=== PATIENT | female | born 1950 | race Caucasian/White ===

== ENCOUNTER 2017-07-21 11:13 | Outpatient (CLI) | payer BC, MEDICARE ==
--- NOTE | 2017-07-27 14:32 | Mammography Report ---
Procedure Date: 07/21/2017 Accession Number: [id number] / [id number] Procedure: SONIA - Screening Mammo Dig Bilat CPT Code: FULL RESULT: EXAM: Screening Mammo Dig Bilat DATE: 07/21/2017 11:30 AM CLINICAL HISTORY: 67-year-old for screening TECHNIQUE: Bilateral CC and MLO views were obtained. COMPARISON: 04/25/2007, 04/19/2006 FINDINGS: The breasts demonstrate scattered fibroglandular densities bilaterally. Punctate, typically benign calcifications are present. No suspicious masses, clustered microcalcifications, or regions of architectural distortion are identified. IMPRESSION: Benign findings RECOMMENDATION: Routine annual screening unless otherwise clinically indicated. BIRADS CATEGORY 2: Benign findings STANDARD QUALIFYING STATEMENTS: 1. This examination was reviewed with the aid of Computer-Aided Detection (CAD). 2. A negative or benign imaging report should not delay biopsy if clinically suspicious findings are present. Consider surgical consultation if warrented. More than 5% of cancers are not identified by imaging. 3. Dense breasts may obscure an underlying neoplasm.
== END 2017-07-21 11:14 | disposition home or self-care (01) ==
LOC: DI 11:13
PROVIDERS: ATTEND Physician Assistant
DX: Z12.31 Encounter for screening mammogram for malignant neoplasm of breast (principal)
CPT/HCPCS: 77067

== ENCOUNTER 2017-08-10 09:28 | Day surgery (SDC) | payer BC, MEDICARE ==
[2017-08-10] MEDS ORDERED: LACTATED RINGERS 1,000 ML IV ONE ×2 (09:41→12:15)
[2017-08-10] MEDS ORDERED: PROPOFOL 200 MG/20 ML VIAL IVP ONE (12:06)
[2017-08-10] MEDS ORDERED: fentaNYL 100 MCG/2 ML VIAL IVP ONE (12:06)
[2017-08-10] MEDS ORDERED: MIDAZOLAM 2 MG/2 ML VIAL IVP ONE (12:06)
[2017-08-10 13:04] VITALS: BP 150/61
== END 2017-08-10 09:29 | disposition home or self-care (01) ==
LOC: SDS 09:28
PROVIDERS: ATTEND Internal Medicine Gastroenterology
PROC: 0DBN8ZX Excision of Sigmoid Colon, Via Natural or Artificial Opening Endoscopic, Diagnostic (ICD-10-PCS; principal; 2017-08-10 10:45)
DX: Z12.11 Encounter for screening for malignant neoplasm of colon (principal); K62.1 Rectal polyp; K63.5 Polyp of colon; K57.30 Diverticulosis of large intestine without perforation or abscess without bleeding; Z80.0 Family history of malignant neoplasm of digestive organs; Z79.82 Long term (current) use of aspirin
CPT/HCPCS: 45380; J7120; 88305

== ENCOUNTER 2021-01-11 13:41 | Outpatient (CLI) | payer BC, MEDICARE | END 2021-01-11 13:42 | disposition critical access hospital (66) | LOC: EMS 13:41 | DX: R07.9 Chest pain, unspecified (principal); R06.02 Shortness of breath; R61 Generalized hyperhidrosis | CPT/HCPCS: A0425; A0427 ==

== ENCOUNTER 2021-01-11 14:11 | Emergency (ER) | payer BC, MEDICARE ==
[2021-01-11] MEDS ORDERED: MORPHINE 2 MG/ML CARPUJECT IVP STA ×2 (14:22→15:15)
--- NOTE | 2021-01-11 14:22 | ED Physician Documentation ---
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 It is at times severe. She maybe had some mild relief with aspirin and nitroglycerin administer prior to arrival by EMS but is still in significant pain. Review of Systems Ten Systems: 10 systems reviewed and negative Constitutional: denies: Fever, Chills Cardiac: denies: Palpitations Respiratory: reports: Dyspnea. 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 - Present Medications Home Medications: Ambulatory Orders Medication Instructions Recorded Confirmed Albuterol Sulfate 1.25 mg IH 04/16/19 lisinopriL [Lisinopril] 10 mg PO DAILY #20 tablet 04/16/19 predniSONE [Deltasone] 15 mg PO 0800 04/16/19 04/16/19 - Allergies Allergies/Adverse Reactions: Allergies Allergy/AdvReac Type Severity Reaction Status Date / Time adhesive Allergy Severe Rash Verified 01/11/21 15:30 latex Allergy Rash Verified 01/11/21 15:30 oxycodone [From Percocet] Allergy Itching Verified 01/11/21 15:30 Sulfa (Sulfonamide Allergy Anaphylaxis Verified 01/11/21 15:30 Antibiotics) PD ED PE NORMAL - Vitals Vital signs reviewed: Yes - General General: Alert and oriented X 3 (She appears uncomfortable. She has hypertensive.) - HEENT HEENT: PERRL, EOMI - Neck Neck: Supple, no meningeal sign, No bony TTP - Cardiac Cardiac: RRR, No murmur, Other (Her chest pain is reproducible with palpation of the upper left breast, and movement of the left arm.) - Respiratory Respiratory: No respiratory distress, Clear bilaterally - Abdomen Abdomen: Soft, Non tender - Derm Derm: Normal color, Warm and dry - Extremities Extremities: No edema, No calf tenderness / cord - Neuro Neuro: Alert and oriented X 3, Normal speech - Psych Psych: Normal mood, Normal affect Results - Vitals Vitals: Vital Signs - 24 hr 01/11/21 01/11/21 01/11/21 14:10 15:00 16:06 Temperature 36.9 C Heart Rate 46 L 44 L 46 L Respiratory 16 15 14 Rate Blood Pressure 137/68 H 148/63 H 159/63 H O2 Saturation 96 97 94 01/11/21 01/11/21 16:30 17:00 Temperature Heart Rate 46 L 42 L Respiratory 11 L 17 Rate Blood Pressure 166/68 H 199/64 H O2 Saturation 96 95 Oxygen O2 Source Room air - EKG (time done) 1414 Rate: Rate (enter#) (47) Rhythm: Sinus bradycardia Intervals: RBBB (known and preexisitng per pt) QRS: Normal Ischemia: No: ST elevation c/w ischemia, ST depression, Non specific changes - Labs Labs: Laboratory Tests 01/11/21 01/11/21 01/11/21 14:26 14:26 14:26 WBC 6.3 RBC 4.32 Hgb 13.5 Hct 41.6 MCV 96.3 MCH 31.3 H MCHC 32.5 RDW 14.2 Plt Count Neut # (Auto) 4.4 Lymph # (Auto) 1.3 L [place] # (Auto) 0.4 Eos # (Auto) 0.1 Baso # (Auto) 0.1 Absolute Nucleated RBC 0.00 Nucleated RBC % 0.0 Manual Slide Review Indicated Platelet Estimate NORMAL (130-450,000) Platelet Morphology PLATELET CLUMPING Sodium 139 Potassium 4.4 Chloride 104 Carbon Dioxide 25 Anion Gap 10.0 BUN 20 Creatinine 0.7 Estimated GFR (MDRD) 82 L Glucose 114 H Calcium 9.3 Total Bilirubin 0.9 AST 21 ALT 26 Alkaline Phosphatase 51 Troponin I High Sens 5.3 Total Protein 6.2 L Albumin 4.0 Globulin 2.2 Albumin/Globulin Ratio 1.8 01/11/21 16:53 WBC RBC Hgb Hct MCV MCH MCHC RDW Plt Count Neut # (Auto) Lymph # (Auto) [place] # (Auto) Eos # (Auto) Baso # (Auto) Absolute Nucleated RBC Nucleated RBC % Manual Slide Review Platelet Estimate Platelet Morphology Sodium Potassium Chloride Carbon Dioxide Anion Gap BUN Creatinine Estimated GFR (MDRD) Glucose Calcium Total Bilirubin AST ALT Alkaline Phosphatase Troponin I High Sens 5.4 Total Protein Albumin Globulin Albumin/Globulin Ratio PD MEDICAL DECISION MAKING - ED course ED course: 70-year-old woman presents with pain of the left upper breast, chest, neck and back. EKG is unremarkable. Serial troponins in the emergency department were negative. CT angiography of the chest mainly what to look at her aorta given the radiation to the back and association with hypertension is negative for aortic pathology. Morphine was minimally helpful for pain but she actually did get decent relief with Toradol. The reproducibility of her pain suggests a musculoskeletal etiology. Departure - Departure Disposition: 01 Home, Self Care Clinical Impression: Chest wall pain Condition: Good Record reviewed to determine appropriate education?: Yes Instructions: ED Strain Chest Wall Comments: As discussed, this seems musculoskeletal. Return if it worsens or changes or if not other new worrisome symptoms develop. Follow-up with your primary care physician regardless.
[2021-01-11] MEDS ORDERED: IOVERSOL 320 100 ML VIAL IVP ONE ×2 (14:34→18:37)
[2021-01-11 14:37] LABS: BASOPHILS # (AUTO) 0.1 10^3/uL (0.0-0.1); BASOPHILS % (AUTO) 1.1 %; EOSINOPHILS # (AUTO) 0.1 10^3/uL (0.0-0.7); EOSINOPHILS % (AUTO) 1.6 %; HCT - HEMATOCRIT 41.6 % (37.0-47.0); HGB - HEMOGLOBIN 13.5 g/dL (12.0-16.0); LYMPHOCYTES # (AUTO) 1.3 10^3/uL (1.5-3.5); LYMPHOCYTES % (AUTO) 21.2 %; MEAN CORPUSCULAR HEMOGLOBIN 31.3 pg (27.0-31.0); MEAN CORPUSCULAR HGB CONC 32.5 g/dL (32.0-36.0); MEAN CORPUSCULAR VOLUME 96.3 fL (81.0-99.0); MONOCYTES # (AUTO) 0.4 10^3/uL (0.0-1.0); MONOCYTES % (AUTO) 5.7 %; NEUTROPHILS # (AUTO) 4.4 10^3/uL (1.5-6.6); NEUTROPHILS % (AUTO) 69.9 %; RED BLOOD COUNT 4.32 10^6/uL (4.20-5.40); RED CELL DISTRIBUTION WIDTH 14.2 % (12.0-15.0); WHITE BLOOD COUNT 6.3 x10^3/uL (4.8-10.8)
[2021-01-11 14:51] LABS: ALBUMIN/GLOBULIN RATIO 1.8 (1.0-2.2); BILIRUBIN,TOTAL 0.9 mg/dL (0.2-1.0); CALCIUM 9.3 mg/dL (8.5-10.3); CREATININE 0.7 mg/dL (0.4-1.0); POTASSIUM 4.4 mmol/L (3.5-5.0); TOTAL PROTEIN 6.2 g/dL (6.7-8.2)
[2021-01-11 14:53] LABS: PLATELET ESTIMATE, MANUAL NORMAL (130-450,000) (NORMAL); PLATELET MORPHOLOGY PLATELET CLUMPING (NORMAL); SLIDE REVIEW? Indicated
--- NOTE | 2021-01-11 16:07 | CT Report ---
PROCEDURE: ANGIO CHEST W/WO INDICATIONS: chest pain, aorta protocol CONTRAST: IV CONTRAST: Optiray 320 ml: 80 PO CONTRAST: *NO PO CONTRAST TECHNIQUE: After the administration of intravenous contrast, 2 mm axial images were acquired from the pulmonary apices to the posterior costophrenic angles during the arterial phase. In addition, 1 mm lung kernel and 5 mm soft tissue kernel reconstructions were performed. 3-dimensional coronal oblique maximum int ensity projection (MIP) reformats, 8 mm axial MIP, and 5 mm coronal and sagittal MPR reformats were t hen performed through the thorax. For radiation dose reduction, the following was used: automated exp osure control, adjustment of mA and/or kV according to patient size. COMPARISON: Chest x-ray 04/16/2019 FINDINGS: Image quality: Excellent. Pulmonary arteries: Pulmonary arteries are normal in size, and demonstrate no intraluminal filling d efects to suggest central pulmonary embolism. Lungs and pleura: Lungs are clear. No pleural effusions or pneumothorax. Central and peripheral ai rways are patent. Mediastinum: Heart size is enlarged, without pericardial effusion. No mediastinal or hilar adenopat hy. Thoracic aorta is normal in caliber and enhancement. Esophagus is normal in caliber, without hi atal hernia. Bones and chest wall: No suspicious bony lesions. Ribs and thoracic spine appear intact throughout. No axillary or supraclavicular adenopathy. The thyroid is normal in size and there are no incident al findings. Abdomen: Visualized upper abdominal solid organs appear normal in the early arterial phase of enhanc ement. IMPRESSION: 1. Lungs are clear. No pulmonary embolus. CLINICAL RECOMMENDATION STATEMENTS: In patients <35 years with an ITN detected on CT, MRI, or extrathyroidal ultrasound, the Committee re commends further evaluation with dedicated thyroid ultrasound if the nodule is "e1 cm and has no susp icious imaging features, and if the patient has normal life expectancy. In patients "e35 years with an ITN detected on CT, MRI, or extrathyroidal ultrasound, the Committee r ecommends further evaluation with dedicated thyroid ultrasound if the nodule is "e1.5 cm and has no s uspicious imaging features, and if the patient has normal life expectancy. (ACR, 2014) Reviewed by: Xiomara Franco MD on 01/11/2021 4:06 PM PST Approved by: Xiomara Franco MD on 01/11/2021 4:06 PM [facility] Station ID: [id number]
[2021-01-11] MEDS ORDERED: KETOROLAC 30 MG/ML VIAL IVP STA (16:15)
[2021-01-11 17:05] VITALS: BP 199/64
[2021-01-11] MEDS ORDERED: lisinopriL 5 MG TABLET PO STA (17:10)
== END 2021-01-11 18:06 | disposition home or self-care (01) ==
LOC: ED 14:11
DX: R07.89 Other chest pain (principal); M54.2 Cervicalgia; I10 Essential (primary) hypertension; R00.1 Bradycardia, unspecified; I45.10 Unspecified right bundle-branch block; Z82.49 Family history of ischemic heart disease and other diseases of the circulatory system
CPT/HCPCS: 36415; 71275; 80053; 84484; 85025; 93005; 96374; 96375; 96376; 99283; 99284; A9270; Q9967

== ENCOUNTER 2021-06-23 16:43 | Outpatient (CLI) | payer BC, MEDICARE | END 2021-06-23 16:44 | disposition home or self-care (01) | LOC: LAB.S 16:43 | PROVIDERS: ATTEND Internal Medicine Rheumatology | DX: M35.3 Polymyalgia rheumatica (principal); M81.0 Age-related osteoporosis without current pathological fracture | CPT/HCPCS: 36415; 82306; 85651; 86140 ==

== ENCOUNTER 2022-03-23 12:28 | Outpatient (CLI) | payer BC, MEDICARE ==
[2022-03-23 14:15] LABS: BASOPHILS # (AUTO) 0.1 10^3/uL (0.0-0.1); BASOPHILS % (AUTO) 1.5 %; EOSINOPHILS # (AUTO) 0.1 10^3/uL (0.0-0.7); EOSINOPHILS % (AUTO) 2.4 %; HGB - HEMOGLOBIN 13.9 g/dL (12.0-16.0); LYMPHOCYTES # (AUTO) 1.5 10^3/uL (1.5-3.5); LYMPHOCYTES % (AUTO) 25.1 %; MEAN CORPUSCULAR HEMOGLOBIN 31.2 pg (27.0-31.0); MEAN CORPUSCULAR HGB CONC 31.6 g/dL (32.0-36.0); MEAN CORPUSCULAR VOLUME 98.9 fL (81.0-99.0); MEAN PLATELET VOLUME 10.5 fL (7.9-10.8); MONOCYTES # (AUTO) 0.3 10^3/uL (0.0-1.0); MONOCYTES % (AUTO) 5.6 %; NEUTROPHILS # (AUTO) 3.9 10^3/uL (1.5-6.6); NEUTROPHILS % (AUTO) 64.9 %; PLT - PLATELET COUNT 262 10^3/uL (130-450); RED BLOOD COUNT 4.45 10^6/uL (4.20-5.40); WHITE BLOOD COUNT 5.9 x10^3/uL (4.8-10.8)
[2022-03-23 14:28] LABS: PARTIAL THROMBOPLASTIN TIME 29.6 secs (24.9-33.3)
[2022-03-23 15:40] LABS: CALCIUM 9.5 mg/dL (8.5-10.3); POTASSIUM 4.4 mmol/L (3.5-5.0)
== END 2022-03-23 12:29 | disposition home or self-care (01) ==
LOC: LAB.S 12:28
PROVIDERS: ATTEND Otolaryngology
DX: Z01.818 Encounter for other preprocedural examination (principal)
CPT/HCPCS: 36415; 80048; 85025; 85610; 85730

== ENCOUNTER 2022-05-04 07:00 | Outpatient (CLI) | payer MEDICARE ==
--- NOTE | 2022-05-04 17:10 | XRAY Report ---
PROCEDURE: Chest 2 View X-Ray INDICATIONS: PRODUCTIVE COUGH TECHNIQUE: 2 views of the chest were acquired. COMPARISON: Chest x-ray 04/16/2019, CT chest 01/11/2021 FINDINGS: Surgical changes and devices: None. Lungs and pleura: No pleural effusions or pneumothorax. Lungs are clear. Mediastinum: Mediastinal contours are normal. Heart size is enlarged. Bones and chest wall: No suspicious bony abnormalities. Soft tissues appear unremarkable. IMPRESSION: No acute pulmonary process. Reviewed by: Xiomara Franco MD on 05/04/2022 5:09 PM PDT Approved by: Xiomara Franco MD on 05/04/2022 5:09 PM PDT Station ID: [id number]
== END 2022-05-04 07:01 | disposition home or self-care (01) ==
LOC: DI.S 07:00
PROVIDERS: ATTEND Physician Assistant Medical
DX: R05.9 Cough, unspecified (principal)

== ENCOUNTER 2023-06-19 11:51 | Emergency (ER) | payer MEDICARE, BC ==
--- NOTE | 2023-06-19 13:24 | ED Physician Documentation ---
History of Present Illness - Stated complaint Stated Complaint: ABD PX - Chief complaint Chief Complaint: Abd Pain - History obtained from History obtained from: Patient - Additonal information Additional information: 8 days ago she tripped over her dog and landed with her knee coming up into her chest. She has increasing and severe left lower chest pain and left upper quadrant pain since then with a feeling of swelling and early satiety. It hurts to take a deep breath and go over bumps on the way here. 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 - Present Medications Home Medications: Ambulatory Orders Medication Instructions Recorded Confirmed Metoprolol Succinate [Kapspargo 25 mg PO DAILY 04/17/22 06/19/23 Sprinkle] lisinopriL [Lisinopril] 20 mg PO DAILY 04/17/22 06/19/23 Diltiazem HCl [Cardizem] 1 tab PO DAILY 06/19/23 06/19/23 Fluticasone/Vilanterol [Breo 1 inh INH DAILY 06/19/23 06/19/23 Ellipta 200-25 Mcg Inhalr] Gabapentin [Neurontin] 1 cap PO DAILY 06/19/23 06/19/23 Omeprazole 1 tab PO DAILY 06/19/23 06/19/23 - Allergies Allergies/Adverse Reactions: Allergies Allergy/AdvReac Type Severity Reaction Status Date / Time adhesive Allergy Severe Rash Verified 06/19/23 12:08 latex Allergy Rash Verified 06/19/23 12:08 oxycodone [From Percocet] Allergy Itching Verified 06/19/23 12:08 Sulfa (Sulfonamide Allergy Anaphylaxis Verified 06/19/23 12:08 Antibiotics) - Social History Does the pt smoke?: No Smoking Status: Never smoker Does the pt drink ETOH?: Yes Does the pt have substance abuse?: No - POLST Patient has POLST: No PD ED PE NORMAL - Vitals Vital signs reviewed: Yes - General General: Alert and oriented X 3, No acute distress - HEENT HEENT: PERRL, EOMI - Neck Neck: Supple, no meningeal sign, No bony TTP - Cardiac Cardiac: RRR, No murmur - Respiratory Respiratory: No respiratory distress, Clear bilaterally - Abdomen Abdomen: Normal bowel sounds, Soft, Other (She is tender over the left lower ribs more than the left upper quadrant. There is no bruising. I attempted to fast scan. There was no free fluid in the right upper quadrant. I was unable to get clear views in the left upper quadrant and it was quite tender.) - Back Back: No CVA TTP, No spinal TTP - Derm Derm: Normal color, Warm and dry - Extremities Extremities: No edema - Neuro Neuro: Alert and oriented X 3 Eye Opening: Spontaneous Motor: Obeys Commands Verbal: Oriented GCS Score: 15 Results - Vitals Vitals: Vital Signs - 24 hr 06/19/23 06/19/23 06/19/23 12:09 14:14 16:54 Temperature 36.8 C Heart Rate 60 40 L 37 L Respiratory 16 17 18 Rate Blood Pressure 190/57 H 146/86 H O2 Saturation 98 91 L 98 Oxygen O2 Source Room air - EKG (time done) 1434 EKG releavant findings:: EKG personally interpreted by author of this note. Relevant findings are: Rate: Rate (enter#) (40) Rhythm: Sinus bradycardia [place]: Normal Intervals: RBBB QRS: LVH Ischemia: Normal ST segments - Labs Labs: Laboratory Tests 06/19/23 06/19/23 06/19/23 13:37 13:37 13:37 WBC 5.4 RBC 4.74 Hgb 14.9 Hct 47.5 H MCV 100.2 H MCH 31.4 H MCHC 31.4 L RDW 13.7 Plt Count 240 MPV 9.9 Neut # (Auto) 3.4 Lymph # (Auto) 1.3 L Gordon # (Auto) 0.4 Eos # (Auto) 0.2 Baso # (Auto) 0.1 Absolute Nucleated RBC 0.00 Nucleated RBC % 0.0 PT 11.1 INR 1.0 Sodium 139 Potassium 4.0 Chloride 105 Carbon Dioxide 26 Anion Gap 8.0 BUN 16 Creatinine 0.6 Estimated GFR (MDRD) 97 Glucose 99 Calcium 9.6 Total Bilirubin 0.5 AST 24 ALT 28 Alkaline Phosphatase 54 Total Protein 6.6 Albumin 4.3 Globulin 2.3 Albumin/Globulin Ratio 1.9 - Rads (name of study) CT chest abdomen and pelvis with IV contrast Relevant Findings:: Final report received, EMP independent interpretation of test PD Medical Decision Making - ED course ED course: She presents with left upper quadrant/left lower chest trauma. It was 8 days ago but pain is severe. She is worried about her spleen, also worried about a rib. I was not able to identify free fluid on FAST exam, but it was limited as she did not tolerate left upper quadrant scanning due to pain. Initial workup demonstrates mild elevation of the hematocrit and MCV. Normal INR. Unremarkable chemistry panel. She was administered 1 mg of Dilaudid IV which helped significantly with her pain, but she did become bradycardic after that down to about 40 and sinus rhythm on the monitor. An EKG was obtained and she will be observed for that as well. Subsequently CT imaging did not demonstrate any traumatic findings, there were some significant incidental findings including cardiomegaly corroborated on EKG and the liver nodule which were discussed with patient and her and she understands the need for follow-up and repeat imaging in 6 months regarding the liver nodule and probably a echocardiogram regarding the cardiomegaly. She remains somewhat bradycardic here, she is on metoprolol and was advised to cease that pending follow-up. She was not dizzy, presyncopal, syncopal, nor having any type of ischemic chest pain. Departure - Departure Disposition: 01 Home, Self Care Clinical Impression: Liver nodule, Bradycardia, Cardiomegaly Abdominal contusion Qualifiers: Encounter type: initial encounter Qualified Code(s): S30.1XXA - Contusion of abdominal wall, initial encounter Contusion, chest wall Qualifiers: Encounter type: initial encounter Laterality: left Qualified Code(s): S20.212A - Contusion of left front wall of thorax, initial encounter Condition: Good Record reviewed to determine appropriate education?: Yes Instructions: ED Contusion Chest Wall Comments: You were seen for trauma to the left side. As discussed, there was no displaced rib fracture but a hairline rib fracture is still a possibility. There is no evidence of a splenic injury and really no evidence of trauma on the CAT scans thankfully. That said, there were incidental findings as we discussed which do need follow-up. 1. You have the 6 mm liver nodule, our radiologist recommends a repeat CT in 6 months. Please mention this to Dr. Bentley. 2. You have cardiomegaly which is also seen on the EKG which did show evidence of an enlarged left ventricle and a right bundle branch block. Mention this to Dr. Bentley as well. Suspect he may want to order an echocardiogram and/or stress test or both. Your heart rate was fairly low here, recommend you stop the metoprolol until you follow-up. Continue your other blood pressure medication. Tylenol as needed for pain. Return if worse. Plan to follow-up with Dr. Bentley for recheck in a week or so. Forms: PCP List Discharge Date/Time: 06/19/23 16:54
[2023-06-19] MEDS ORDERED: iohexoL-300 100 ML VIAL ONE (13:38)
[2023-06-19] MEDS: HYDROmorphone 1 MG/ML CARPUJECT IVP STA (13:44)
[2023-06-19 13:51] LABS: BASOPHILS # (AUTO) 0.1 10^3/uL (0.0-0.1); BASOPHILS % (AUTO) 1.1 %; EOSINOPHILS # (AUTO) 0.2 10^3/uL (0.0-0.7); HCT - HEMATOCRIT 47.5 % (37.0-47.0); HGB - HEMOGLOBIN 14.9 g/dL (12.0-16.0); LYMPHOCYTES # (AUTO) 1.3 10^3/uL (1.5-3.5); LYMPHOCYTES % (AUTO) 23.6 %; MEAN CORPUSCULAR HEMOGLOBIN 31.4 pg (27.0-31.0); MEAN CORPUSCULAR HGB CONC 31.4 g/dL (32.0-36.0); MEAN CORPUSCULAR VOLUME 100.2 fL (81.0-99.0); MEAN PLATELET VOLUME 9.9 fL (7.9-10.8); MONOCYTES # (AUTO) 0.4 10^3/uL (0.0-1.0); NEUTROPHILS # (AUTO) 3.4 10^3/uL (1.5-6.6); NEUTROPHILS % (AUTO) 64.1 %; PLT - PLATELET COUNT 240 10^3/uL (130-450); RED BLOOD COUNT 4.74 10^6/uL (4.20-5.40); RED CELL DISTRIBUTION WIDTH 13.7 % (12.0-15.0); WHITE BLOOD COUNT 5.4 x10^3/uL (4.8-10.8)
[2023-06-19 13:59] LABS: PT - PROTHROMBIN TIME 11.1 secs (9.9-12.6)
[2023-06-19 14:06] LABS: ALBUMIN 4.3 g/dL (3.2-5.5); ALBUMIN/GLOBULIN RATIO 1.9 (1.0-2.2); BILIRUBIN,TOTAL 0.5 mg/dL (0.2-1.0); CALCIUM 9.6 mg/dL (8.5-10.3); CREATININE 0.6 mg/dL (0.6-1.3); TOTAL PROTEIN 6.6 g/dL (6.4-8.9)
[2023-06-19] MEDS: iohexoL-300 100 ML VIAL IVP ONE (15:26)
--- NOTE | 2023-06-19 16:12 | CT Report ---
PROCEDURE: Chest W INDICATIONS: chest inj CONTRAST: Omni 300 100ml TECHNIQUE: After the administration of intravenous contrast, a CT scan of the chest was performed. Images were recorded and evaluated at appropriate window settings. Reformats: axial MIP of the chest, coronal and sagittal. For radiation dose reduction, the following was used: automated exposure control, adjustme nt of mA and/or kV according to patient size. COMPARISON: CT angiogram of chest dated 01/11/2021. Chest radiograph dated 05/04/2022. FINDINGS: Image quality: Diagnostic. Chest wall and lower neck: No thyroid nodule which requires sonographic follow up. No axillary or sup raclavicular adenopathy by size. Lungs and pleura: Biapical scarring is seen. Scattered scarring/atelectasis in posterior lateral suzy phery of bilateral mid to lower lung pugh are seen. Solid nodule measures 6 mm in size in posterior aspect of left lower lobe, not seen on previous study series 4 image 57 no other suspicious pulmonar y nodule is seen. No pleural effusion or pneumothorax. Central and peripheral airway is patent. Mediastinum: Heart size is enlarged.. No pericardial effusion. No large vessel abnormality. No medias tinal adenopathy by size criteria. Bones: No aggressive osseous abnormality. No displaced rib fractures. No acute vertebral body whit ayleen fracture. Upper Abdomen: Please correlate with CT of abdomen and pelvis findings. IMPRESSION: 1. No mediastinal hematoma. No pericardial effusion. Cardiomegaly. No mediastinal or hilar lymphadeno benito. 2. Scattered atelectasis and scarring in periphery of bilateral mid to lower lung pugh. Biapical sc arring. No focal infiltrate, pleural effusion or pneumothorax. Incidentally noted of 6 mm solid nodul e in posterior aspect of left lower lobe new since 2020 study. Follow-up CT study in 6 month is recom mended. 3. No displaced rib fracture. No acute vertebral body compression fracture. Reviewed by: Sid Ye MD on 06/19/2023 4:11 PM PDT Approved by: Sid Ye MD on 06/19/2023 4:11 PM PDT Station ID: [id number]
--- NOTE | 2023-06-19 16:16 | CT Report ---
PROCEDURE: Abdomen/Pelvis W INDICATIONS: iv only luq trauma CONTRAST: Omni 300 100ml TECHNIQUE: After the administration of intravenous contrast, a CT scan of the abdomen and pelvis was performed. Images were recorded and evaluated at appropriate window settings. Reformats: coronal and sagittal. F or radiation dose reduction, the following was used: automated exposure control, adjustment of mA and /or kV according to patient size. COMPARISON: None. FINDINGS: Image quality: Diagnostic. Lower chest: Please correlate with CT of chest report. Liver: No solid mass. Gallbladder and biliary tree: Surgically absent. No biliary dilation, accounting for post-cholecystec evaristo state. Spleen: No splenomegaly. Pancreas: No pancreatic ductal dilation. Adrenals: No adrenal nodule. Kidneys and ureters: No hydronephrosis. No renal cystic lesion which requires follow up. No solid mas s. Stomach, bowel and peritoneum: There is no bowel obstruction. No abnormal bowel wall thickening or me senteric fat stranding. Extensive colonic diverticulosis is seen without colonic wall thickening or f at stranding. No abscess collection. No free fluid of free air. Lymph nodes: No central or retroperit alaniz adenopathy. Vessels: No infrarenal aortic aneurysm. PELVIS Reproductive organs: Unremarkable. Bladder: No abnormal wall thickening, accounting for underdistention. Pelvic lymph nodes: No pelvic adenopathy by size criteria. Bones: No aggressive osseous abnormality. No acute vertebral body compression fracture. Grade 1 anter olisthesis of L4 on L5. No acute pelvic fracture or dislocation. Other: No significant ventral or inguinal hernia. IMPRESSION: 1. No acute solid organ injury is seen in abdomen or pelvis. 2. No acute fracture or dislocation. 3. Extensive colonic diverticulosis without CT evidence of acute diverticulitis. No free fluid of keri e air. 4. Grade 1 anterolisthesis of L4 on L5. No acute vertebral body compression fracture. Reviewed by: Sid Ye MD on 06/19/2023 4:15 PM PDT Approved by: Sid Ye MD on 06/19/2023 4:15 PM PDT Station ID: [id number]
[2023-06-19 17:00] VITALS: BP 146/86; O2SAT 98
== END 2023-06-19 16:54 | disposition home or self-care (01) ==
LOC: ED 11:51
DX: S30.1XXA Contusion of abdominal wall, initial encounter (principal); S20.212A Contusion of left front wall of thorax, initial encounter; W01.198A Fall on same level from slipping, tripping and stumbling with subsequent striking against other object, initial encounter; R00.1 Bradycardia, unspecified; T40.2X5A Adverse effect of other opioids, initial encounter; I45.10 Unspecified right bundle-branch block; I11.9 Hypertensive heart disease without heart failure; K76.89 Other specified diseases of liver; Z79.899 Other long term (current) drug therapy
CPT/HCPCS: 36415; 71260; 74177; 80053; 85025; 85610; 93005; 96374; 99284; 99285; J1170; Q9967

== ENCOUNTER 2023-09-17 20:36 | Outpatient (CLI) | payer MEDICARE, BC | END 2023-09-17 23:59 | disposition short-term general hospital (02) | LOC: EMS 20:36 | DX: R46.4 Slowness and poor responsiveness (principal); R06.89 Other abnormalities of breathing; R00.1 Bradycardia, unspecified; R47.01 Aphasia; R23.1 Pallor | CPT/HCPCS: A0425; A0427 ==

== ENCOUNTER 2023-10-16 14:19 | Outpatient (CLI) | payer MEDICARE, BC | END 2023-10-16 23:59 | disposition critical access hospital (66) | LOC: EMS 14:19 | DX: Z43.1 Encounter for attention to gastrostomy (principal) | CPT/HCPCS: A0425; A0429 ==

== ENCOUNTER 2023-10-16 14:23 | Emergency (ER) | payer MEDICARE, BC ==
[2023-10-16 14:48] VITALS: O2SAT 98
--- NOTE | 2023-10-16 15:57 | ED Physician Documentation ---
History of Present Illness - Stated complaint Stated Complaint: PEG TUBE OUT - Chief complaint Chief Complaint: General - History obtained from History obtained from: Patient - Additonal information Additional information: Patient is a 73-year-old female who had a PEG tube placed about 9 days ago in [facility] in [place]. This is after a stroke. She is living at [facility]. Has an 18 Turkmen G-tube. The G-tube reportedly fell out today. She does not have an extra G-tube with her. 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: Hysterectomy, Oophrectomy - Present Medications Home Medications: Ambulatory Orders Medication Instructions Recorded Confirmed Acetaminophen [Children's Pain 20.5 ml PEG Q6HR PRN 10/16/23 10/16/23 Relief] Albuterol Sulf [Ventolin Hfa 2 puffs INH Q4HR PRN 10/16/23 10/16/23 Inhaler] Aspirin [Hettinger Aspirin] 81 mg PEG DAILY 10/16/23 10/16/23 Atorvastatin Calcium [Lipitor] 80 mg PEG DAILY 10/16/23 10/16/23 Bisacodyl Supp [Dulcolax Supp] 10 mg OH DAILY PRN 10/16/23 10/16/23 Fluticasone/Vilanterol [Breo 1 each IH DAILY 10/16/23 10/16/23 Ellipta 200-25 Mcg INH] Lisinopril [Zestril] 40 mg PEG DAILY 10/16/23 10/16/23 Melatonin 6 mg PEG QPM PRN 10/16/23 10/16/23 Mineral Oil [Mineral Oil Enema] 1 ea RC PRN PRN 10/16/23 10/16/23 Omeprazole 20 mg PEG DAILY 10/16/23 10/16/23 Ondansetron Odt [Zofran Odt] 4 mg PEG Q4HR PRN 10/16/23 10/16/23 QUEtiapine [SEROquel] 12.5 mg PEG BID PRN 10/16/23 10/16/23 Senna [Senokot] 17.2 mg PEG DAILY PRN 10/16/23 10/16/23 Thiamine [Vitamin B-1] 100 mg PEG DAILY 10/16/23 10/16/23 carvediloL [Coreg] 25 mg PEG DAILY 10/16/23 10/16/23 estradioL vaginal [Estrace vaginal] 0.5 gm VG ONCE 10/16/23 10/16/23 polyethylene glycoL 3350 [Miralax] 17 gm PEG PRN PRN 10/16/23 10/16/23 - Allergies Allergies/Adverse Reactions: Allergies Allergy/AdvReac Type Severity Reaction Status Date / Time No Known Drug Allergies Allergy Verified 10/16/23 14:38 - Social History Does the pt smoke?: No Smoking Status: Never smoker Does the pt drink ETOH?: Yes Does the pt have substance abuse?: No - POLST Patient has POLST: No PD ED PE NORMAL - Vitals Vital signs reviewed: Yes - General General: Alert and oriented X 3, No acute distress - HEENT HEENT: Moist mucous membranes - Neck Neck: Supple, no meningeal sign - Cardiac Cardiac: RRR - Respiratory Respiratory: No respiratory distress, Clear bilaterally - Abdomen Abdomen: Soft, Non tender, Non distended, Other (Stoma in the left upper quadrant.) - Derm Derm: Warm and dry Results - Vitals Vitals: Vital Signs - 24 hr 10/16/23 14:38 Temperature 36.3 C L Heart Rate 71 Respiratory 20 Rate Blood Pressure 144/64 H O2 Saturation 98 Oxygen O2 Source Room air - Rads (name of study) Tube check abdominal x-ray Relevant Findings:: Final report received, See rad report Procedures - General procedure General procedure: Surgilube was applied to the end of an 18 Turkmen Andrade catheter, gentle pressure applied into the stoma, passed easily into the stomach. Balloon was inflated. Flushes easily and returns gastric contents. PD Medical Decision Making - ED course Complexity details: reviewed results, considered differential, d/w family ED course: There are no G-tubes in the hospital today that are smaller than 22 Turkmen. Therefore an 18 Turkmen Andrade catheter was placed into the stoma. Tube check performed which shows contrast in the appropriate expected position. Recommend that she follow-up with her doctor or [facility] tomorrow to have the Andrade catheter replaced with a 18 Turkmen feeding tube. This document was made in part using voice recognition software. While efforts are made to proofread this document, sound alike and grammatical errors may occur. Departure - Departure Disposition: 01 Home, Self Care Clinical Impression: Dislodged gastrostomy tube Condition: Good Instructions: ED G Tube Replacement Follow-Up: RENETTA SILVA MD [Primary Care Provider] - Comments: Shasha has an 18 Turkmen gastrostomy tube that was placed at [facility] in [place]. This hospital does not carry any gastrostomy tube smaller than a 22 Turkmen which is too large for her. You will need to contact her doctor or [facility] to see if they have an 18 Turkmen G-tube that her feeding tube can be replaced with. A Andrade catheter was placed today to keep the tube open, it can be used overnight until her feeding tube can be replaced tomorrow. Forms: PCP List
[2023-10-16] MEDS ORDERED: DIATRIZOATE MEGLU/DIATRIZO SOD 30 ML BOTTLE PO ONE ×2 (16:25→17:00)
[2023-10-16 17:25] VITALS: BP 138/60
--- NOTE | 2023-10-16 18:05 | XRAY Report ---
PROCEDURE: Abdomen 1 V INDICATIONS: g-tube check TECHNIQUE: 2 views of the abdomen were acquired after administration of enteric contrast through the T-tube. COMPARISON: CT abdomen and pelvis dated June 19, 2023. FINDINGS: Surgical changes and devices: Gastrostomy tube in the left hemiabdomen. Cholecystectomy clips. Bowel: Bowel gas pattern is normal. There is enteric contrast in the small bowel. Soft tissues: No suspicious abdominal calcifications. Visualized solid organ contours appear normal in size. Bones: No suspicious bony lesions. IMPRESSION: Gastrostomy tube in the left hemiabdomen. Enteric contrast in the small bowel. Reviewed by: Derrek Bailey MD on 10/16/2023 5:03 PM [facility] Approved by: Derrek Bailey MD on 10/16/2023 5:03 PM [facility] Station ID: [id number]
== END 2023-10-16 17:19 | disposition home or self-care (01) ==
LOC: EDUNIT# → ED 14:23
DX: Z46.59 Encounter for fitting and adjustment of other gastrointestinal appliance and device (principal); Z86.73 Personal history of transient ischemic attack (TIA), and cerebral infarction without residual deficits
CPT/HCPCS: 43762; 74018; 99283; 99284; Q9963

== ENCOUNTER 2023-10-16 17:21 | Outpatient (CLI) | payer MEDICARE, BC | END 2023-10-16 23:59 | LOC: EMS 17:21 | PROVIDERS: ATTEND Emergency Medicine | DX: Z43.1 Encounter for attention to gastrostomy (principal); R41.0 Disorientation, unspecified; Z74.01 Bed confinement status | CPT/HCPCS: A0425; A0428 ==